=== PATIENT | female | born 1995 | race Caucasian/White ===

== ENCOUNTER 2019-04-13 15:16 | Emergency (ER) | payer OTHER ==
[2019-04-13 16:54] LABS: Absolute Lymphocytes (CBC) 1.4 K/uL (0.7-4.9); Basophils % 0.6 % (0-1.3); Hematocrit 40.2 % (36.0-45.0); Lymphocytes % 20.9 % (15.3-44.8); MPV 10.1 fL (7.6-11.3); RBC Red Blood Cell Count 4.59 M/uL (3.86-4.86)
[2019-04-13 16:59] LABS: Urine Blood TRACE (NEG); Urine Glucose NEGATIVE (NEG); Urine Protein NEGATIVE (NEG); Urine Specific Gravity 1.015 (1.005-1.030); Urine pH 6.5 (5.0-7.0)
[2019-04-13 17:02] LABS: Albumin 4.4 g/dL (3.4-5.0); Bilirubin Direct 0.1 mg/dL (0-0.2); Bilirubin Total 0.3 mg/dL (0.2-1.0); Potassium 3.5 mmol/L (3.5-5.1); Protein, Total 8.2 g/dL (6.4-8.2)
--- NOTE | 2019-04-13 17:10 | RAD REPORT ---
EXAM DESCRIPTION: CTAbdomen Pelvis W Contrast - 04/13/2019 5:01 pm CLINICAL HISTORY: Abdominal pain. right lower abdominal pain COMPARISON: No comparisons TECHNIQUE: Biphasic CT imaging of the abdomen and pelvis was performed with 100 ml non-ionic IV cont rast. All CT scans are performed using dose optimization technique as appropriate and may include automated exposure control or mA/KV adjustment according to patient size. FINDINGS: The lung bases are clear. The liver, spleen, pancreas, adrenal glands and kidneys are within normal limits. Cholecystectomy cli ps. No bowel obstruction, free air, free fluid or abscess. There is mild thickening of the right colon se en. The appendix is normal. No evidence of significant lymphadenopathy. No suspicious bony findings. IMPRESSION: Mild right-sided colitis is suspected.
--- NOTE | 2019-04-13 17:26 | EDPHYS ---
Physician Documentation [facility] Name: Sonia Chawla Age: 23 yrs Sex: Female : 1995 Arrival Date: 04/13/2019 Time: 15:21 Bed 8 Private MD: Trey Chawla B ED Physician Varghese Mcclellan HPI: 04/13 16:39 This 23 yrs old Female presents to ER via Ambulatory with complaints of jmm Abdominal Pain. 16:39 The patient presents with abdominal pain. Onset: The symptoms/episode began/occurred jmm gradually, 1 day(s) ago. The symptoms do not radiate. Associated signs and symptoms: Pertinent positives: diarrhea, Pertinent negatives: fever. This is a 23 year old female with no chronic medical conditions that presents to the ED with complaint sof right lower abdominal pain beginning approx 1 day ago with diarrhea. patient localizes the pain to the right lower quadrant. . 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 - Social history:: Smoking status: Patient denies any tobacco usage or history of. - Ebola Screening: : Patient negative for fever greater than or equal to 101.5 degrees Fahrenheit, and additional compatible Ebola Virus Disease symptoms Patient denies exposure to infectious person Patient denies travel to an Ebola-affected area in the 21 days before illness onset No symptoms or risks identified at this time. ROS: 16:39 Constitutional: Negative for fever, chills, and weight loss, Cardiovascular: Negative jmm for chest pain, palpitations, and edema, Respiratory: Negative for shortness of breath, cough, wheezing, and pleuritic chest pain. 16:39 Abdomen/GI: Positive for abdominal pain, diarrhea. 16:39 All other systems are negative. Exam: 16:39 Constitutional: This is a well developed, well nourished patient who is awake, alert, jmm and in no acute distress. Head/Face: atraumatic. Eyes: EOMI, no conjunctival erythema appreciated ENT: Moist Mucus Membranes Neck: Trachea midline, Supple Chest/axilla: Normal chest wall appearance and motion. Cardiovascular: Regular rate and rhythm. No edema appreciated Respiratory: Normal respirations, no respiratory distress appreciated 16:39 Back: Normal ROM Skin: General appearance color normal MS/ Extremity: Moves all extremities, no obvious deformities appreciated, no edema noted to the lower extremities Neuro: Awake and alert, normal gait Psych: Behavior is normal, Mood is normal, Patient is cooperative and pleasant 16:39 Abdomen/GI: Inspection: abdomen appears normal, Bowel sounds: normal, Palpation: moderate abdominal tenderness, in the right lower quadrant. Vital Signs: 15:47 BP 124 / 87; Pulse 79; Resp 16; Temp 97.4; Pulse Ox 100% on R/A; Weight 62.6 kg; Height iw 5 ft. 6 in. (167.64 cm); Pain 10/10; 17:23 BP 126 / 72; Pulse 71; Resp 15; Pulse Ox 100% on R/A; hb 15:47 Body Mass Index 22.27 (62.60 kg, 167.64 cm) iw MDM: 16:28 Patient medically screened. [facility] 17:24 Data reviewed: vital signs, nurses notes. Counseling: I had a detailed discussion with amilcar the patient and/or guardian regarding: the historical points, exam findings, and any diagnostic results supporting the discharge/admit diagnosis, lab results, radiology results, the need for outpatient follow up, to return to the emergency department if symptoms worsen or persist or if there are any questions or concerns that arise at home. ED course: I discussed the patient with Dr. Chawla whom will follow up with the patient. The patient was otherwise given early appendicitis return precautions. Patient understood and agrees with the plan of care. . 04/13 16:10 Order name: Basic Metabolic Panel; Complete Time: 17:11 [facility] 04/13 16:10 Order name: CBC with Diff; Complete Time: 17:11 [facility] 04/13 16:10 Order name: Creatinine for Radiology; Complete Time: 17:11 [facility] 04/13 16:10 Order name: Hepatic Function; Complete Time: 17:11 [facility] 04/13 16:10 Order name: Lipase; Complete Time: 17:11 [facility] 04/13 16:30 Order name: Urine Dipstick--Ancillary (enter results); Complete Time: 17:11 [facility] 04/13 16:10 Order name: IV Saline Lock; Complete Time: 16:34 [facility] 04/13 16:10 Order name: Labs collected and sent; Complete Time: 16:34 [facility] 04/13 16:10 Order name: Urine Dipstick-Ancillary (obtain specimen); Complete Time: 16:26 [facility] 04/13 16:11 Order name: Urine Test (obtain specimen); Complete Time: 16:26 [facility] 04/13 16:28 Order name: CT Abd/Pelvis - IV Contrast Only; Complete Time: 17:15 [facility] 04/13 16:30 Order name: Urine --Ancillary (enter results); Complete Time: 17:11 em1 Administered Medications: No medications were administered Disposition: 04/13/19 17:25 Discharged to Home. Impression: Colitis. - Condition is Stable. - Discharge Instructions: Colitis. - Prescriptions for Bentyl 20 mg Oral Tablet - take 2 tablet by ORAL route every 6 hours As needed; 40 tablet. Flagyl 500 mg Oral Tablet - take 1 tablet by ORAL route every 6 hours for 10 days; 40 tablet. Cipro 500 mg Oral Tablet - take 1 tablet by ORAL route every 12 hours for 10 days; 20 tablet. - Medication Reconciliation Form, Thank You Letter, Antibiotic Education, Prescription Opioid Use form. - Follow up: Trey Chawla MD; When: 1 - 2 days; Reason: Recheck today's complaints, Continuance of care, Re-evaluation by your physician. Addendum: 04/15/2019 19:44 Co-signature as Attending Physician, Varghese Mcclellan MD. r n Signatures: Dispatcher [employer] EDNH Charly Soto PA PA Nan Reyes RN RN iw Nieto, Roman, MD MD rn Baxter, Heather, RN RN hb Corrections: (The following items were deleted from the chart) 04/13 18:13 17:25 04/13/2019 17:25 Discharged to Home. Impression: Colitis. Condition is Stable. hb Forms are Medication Reconciliation Form, Thank You Letter, Antibiotic Education, Prescription Opioid Use. Follow up: Trey Chawla; When: 1 - 2 days; Reason: Recheck today's complaints, Continuance of care, Re-evaluation by your physician. [facility]
--- NOTE | 2019-04-13 17:26 | ER ---
Nurse's Notes [facility] Name: Sonia Chawla Age: 23 yrs Sex: Female : 1995 Arrival Date: 04/13/2019 Time: 15:21 Bed 8 Private MD: Trey Chawla B Diagnosis: Colitis Presentation: 04/13 15:46 Presenting complaint: Patient states: yesterday and today had pain across stomach, went iw to PCP today and had tenderness to RLQ. Transition of care: patient was not received from another setting of care. Onset of symptoms was April 12, 2019. Risk Assessment: Do you want to hurt yourself or someone else? Patient reports no desire to harm self or others. Initial Sepsis Screen: Does the patient meet any 2 criteria? No. Patient's initial sepsis screen is negative. Does the patient have a suspected source of infection? No. Patient's initial sepsis screen is negative. Care prior to arrival: None. 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 - Social history:: Smoking status: Patient denies any tobacco usage or history of. - Ebola Screening: : Patient negative for fever greater than or equal to 101.5 degrees Fahrenheit, and additional compatible Ebola Virus Disease symptoms Patient denies exposure to infectious person Patient denies travel to an Ebola-affected area in the 21 days before illness onset No symptoms or risks identified at this time. Screenin:15 Abuse screen: Denies threats or abuse. Denies injuries from another. Nutritional hb screening: No deficits noted. Tuberculosis screening: No symptoms or risk factors identified. Fall Risk None identified. Assessment: 16:15 General: Appears in no apparent distress. Behavior is calm, cooperative. Pain: Pain hb currently is 8 out of 10 on a pain scale. Neuro: Level of Consciousness is awake, alert, obeys commands, Oriented to person, place, time, situation. Cardiovascular: Capillary refill < 3 seconds Patient's skin is warm and dry. Respiratory: Airway is patent Respiratory effort is even, unlabored, Respiratory pattern is regular, symmetrical, Breath sounds are clear bilaterally. GI: Abdomen is flat, Bowel sounds present X 4 quads. Abd is soft and non tender X 4 quads. Reports lower abdominal pain, upper abdominal pain, nausea. : No signs and/or symptoms were reported regarding the genitourinary system. EENT: No signs and/or symptoms were reported regarding the EENT system. Derm: Skin is pink, warm \T\ dry. Musculoskeletal: No signs and/or symptoms reported regarding the musculoskeletal system. 17:05 Reassessment: Patient appears in no apparent distress at this time. Patient and/or hb family updated on plan of care and expected duration. Pain level reassessed. Patient is alert, oriented x 3, equal unlabored respirations, skin warm/dry/pink. Vital Signs: 15:47 BP 124 / 87; Pulse 79; Resp 16; Temp 97.4; Pulse Ox 100% on R/A; Weight 62.6 kg; Height iw 5 ft. 6 in. (167.64 cm); Pain 10/10; 17:23 BP 126 / 72; Pulse 71; Resp 15; Pulse Ox 100% on R/A; hb 15:47 Body Mass Index 22.27 (62.60 kg, 167.64 cm) iw ED Course: 15:21 Patient arrived in ED. mr 15:21 Trey Chawla MD is Private Physician. mr 15:47 Triage completed. iw 15:47 Arm band placed on. iw 16:08 Kathrine Chakraborty, RN is Primary Nurse. hb 16:10 Charly Soto PA is PHCP. jmm 16:10 Varghese Mcclellan MD is Attending Physician. jmm 16:15 Patient has correct armband on for positive identification. Bed in low position. Call hb light in reach. Side rails up X 1. 16:20 Inserted saline lock: 22 gauge in left antecubital area, using aseptic technique. Blood hb collected. 17:01 CT Abd/Pelvis - IV Contrast Only In Process Unspecified. EDMS 17:25 Trey Chawla MD is Referral Physician. jmm Administered Medications: No medications were administered Outcome: 17:25 Discharge ordered by . jmm 18:13 Patient left the ED. hb Signatures: Dispatcher [employer] EDMS Mickail, Charly, PA PA jmm Pires, Nidia mr Nan Chu, RN RN Kathrine Ansari RN RN hb
[2019-04-13 18:28] VITALS: TEMP 97.4; O2SAT 100
[2019-04-13 18:34] VITALS: BP 126/72
== END 2019-04-13 18:13 | disposition home or self-care (01) ==
LOC: ER 15:16
DX: K52.9 Noninfective gastroenteritis and colitis, unspecified (principal); Z88.5 Allergy status to narcotic agent
CPT/HCPCS: 85025; 80048; 36415; 81025; 80076; 81003; 83690; 74177; 99283; Q9967